=== PATIENT | female | born 2000 | race African-American/Black ===

== ENCOUNTER 2018-11-05 10:33 | Emergency (ER) | payer BC ==
[2018-11-05] MEDS ORDERED: Ondansetron INJ* 2 MG/ML VIAL IV ONE (11:09)
[2018-11-05] MEDS ORDERED: NS 0.9% 1000 ML** 1,000 ML IV ONE (11:09)
[2018-11-05] MEDS ORDERED: Ketorolac INJ* 30 MG/ML 1 ML VIAL IV PUSH ONE (11:09)
--- NOTE | 2018-11-05 11:10 | ED ---
Complex/Multi-Sys Presentation - HPI Summary HPI Summary: This patient is a 17 year old F presenting to [facility] with a chief complaint of abdominal pain since night of 11/04/18. Pt report she had a sore throat, abdominal pain, diarrhea (watery, no blood). Then this morning pt reports trouble breathing, her abdominal pain was aggravated by breathing. And she reports diarrhea, nausea, dry heaving, and more abdominal pain. 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 Per triage, the patient rates the pain 7/10 in severity. Patient reports chills (night of 11/04/18), no loss of appetite. Patient denies urinary symptoms. Her last known menstrual period was 4 months ago, when her control was placed. Pt has PMHx of chronic sinusitis, and asthma. Pt has had two sinus surgeries. Pt reports no smoking, no drug use, occasional drinking. Medications reviewed. Allergies noted - History Of Current Complaint Chief Complaint: EDShortnessOfBreath Time Seen by Provider: 11/05/18 10:57 Hx Obtained From: Patient Onset/Duration: Lasting Hours, Still Present Timing: Constant, Hours Severity Currently: Severe Severity Initially: Moderate Location: Pain At: - Abdomen Aggravating Factor(s): Breathing Alleviating Factor(s): Nothing Associated Signs And Symptoms: Positive: SOB, Nausea, Diarrhea, Abdominal Pain. Negative: Dysuria Related History: Similar Episode/Diagnosed As: - large appendix - Allergies/Home Medications Allergies/Adverse Reactions: Allergies Allergy/AdvReac Type Severity Reaction Status Date / Time shellfish derived Allergy Hives Verified 11/05/18 10:50 strawberry Allergy Hives Verified 11/05/18 10:50 PMH/Surg Hx/FS Hx/Imm Hx Respiratory History: Reports: Hx Asthma Sensory History: Denies: Hx Legally Blind Opthamlomology History: Denies: Hx Legally Blind EENT History: Reports: Other - chronic sinusitis Denies: Hx Deafness - Surgical History Surgery Procedure, Year, and Place: 2x Sinus Surgeries. Infectious Disease History: No Infectious Disease History: Denies: Traveled Outside the [place] in Last 30 Days - Family History Known Family History: Positive: Hypertension Negative: Diabetes - Social History Occupation: Student Lives: Dormitory/Roommates Alcohol Use: Occasionally Substance Use Type: Reports: None Smoking Status (MU): Never Smoked Tobacco Review of Systems Positive: Chills Positive: Sore Throat Positive: Shortness Of Breath Positive: Abdominal Pain, Diarrhea, Nausea Negative: dysuria, hematuria All Other Systems Reviewed And Are Negative: Yes Physical Exam - Summary Physical Exam Summary: Constitutional: Well-developed, Well-nourished, Alert. (-) Distressed Skin: Warm, Dry HENT: Normocephalic; Atraumatic Eyes: Conjunctiva normal Neck: Musculoskeletal ROM normal neck. (-) JVD, (-) Stridor, (-) Tracheal deviation Cardio: Rhythm regular, rate normal, Heart sounds normal; Intact distal pulses; The pedal pulses are 2+ and symmetric. Radial pulses are 2+ and symmetric. (-) Murmur Pulmonary/Chest wall: Effort normal. (-) Respiratory distress, (-) Wheezes, (-) Rales Abd: Soft, (-) tenderness, (-) Distension, (-) Guarding, (-) Rebound, RUQ and RLQ tenderness worse in lower quadrant. Minimal abdominal pain with percussion of heel Musculoskeletal: (-) Edema Lymph: (-) Cervical adenopathy Neuro: Alert, Oriented x3 Psych: Mood and affect Normal Triage Information Reviewed: Yes Vital Signs On Initial Exam: Initial Vitals Temp Pulse Resp BP Pulse Ox 99.2 F 117 20 115/67 100 11/05/18 10:40 11/05/18 10:40 11/05/18 10:40 11/05/18 10:40 11/05/18 10:40 Vital Signs Reviewed: Yes Diagnostics - Vital Signs Vital Signs Temp Pulse Resp BP Pulse Ox 11/05/18 10:40 99.2 F 117 20 115/67 100 - Laboratory Result Diagrams: 11/05/18 11:28 11/05/18 11:28 Lab Statement: Any lab studies that have been ordered have been reviewed, and results considered in the medical decision making process. - CT Abdomen/Pelvis CT CT Interpretation Completed By: Radiologist Summary of CT Findings: Abdomen/Pelvis CT reveals, per radiologist, IMPRESSION: NO ACUTE CT PATHOLOGY OF THE VISUALIZED ABDOMEN OR PELVIS. ED physician has reviewed this radiology report. Re-Evaluation - Re-Evaluation First Eval Comment: White count comes back at 13.7, will order CT scan. Second Eval Re-Evaluation Time: 16:23 Comment: Discussed plan of care with pt. Complex Multi-Symp Course/Dx Course Of Treatment: Patient is here with right lower quadrant pain, nausea, diarrhea, chills. Patient has had multiple presentations that are similar in the past with negative workup outside of a "large appendix". Given patient's multiple CT scans in the past, a stepwise approach was taken today. Patient had blood performed which looks ecchymosis of 14. Due to her leukocytosis, a CT scan was performed which showed no evidence of appendicitis. - Diagnoses Provider Diagnoses: Abdominal pain with vomiting, Chills Discharge ED - Sign-Out/Discharge Documenting (check all that apply): Patient Departure - Discharge Patient Received Moderate/Deep Sedation with Procedure: No - Discharge Plan Condition: Stable Disposition: HOME Prescriptions: Dicyclomine CAP* [Bentyl CAP*] 10 mg PO TID PRN #20 cap PRN Reason: Pain - Moderate Ondansetron ODT TAB* [Zofran 4 MG Odt TAB*] 4 mg PO Q8H PRN #12 tab.odt PRN Reason: Vomiting Patient Education Materials: Acute Nausea and Vomiting (ED), Acute Abdominal Pain (ED) Referrals: [facility], [facility] - Bob SANTANA [Primary Care Provider] - As Soon As Possible Additional Instructions: Take medication as prescribed. Take pedialyte to stay hydrated. Follow up with primary care provider as soon as possible. PLEASE RETURN TO EMERGENCY DEPARTMENT FOR ANY NEW OR WORSENING SYMPTOMS - Billing Disposition and Condition Condition: STABLE Disposition: Home - Attestation Statements Document Initiated by Isidro: Yes Documenting Scribe: Melissa Colon Provider For Whom Isidro is Documenting (Include Credential): Bryson Cardenas MD Scribe Attestation: Melissa Ho, scribed for Bryson Cardenas MD on 11/05/18 at 2148. Scribe Documentation Reviewed: Yes Provider Attestation: The documentation as recorded by the Melissa johnson accurately reflects the service I personally performed and the decisions made by me, Bryson Cardenas MD Status of Scribe Document: Viewed
[2018-11-05 11:48] LABS: ABS Lymphocytes 0.6 10^3/ul (1.0-4.8); ABS Monocytes 0.8 10^3/ul (0-0.8); ABS Neutrophils 12.3 10^3/ul (1.5-7.7); Eosinophil % 0.3 %; Hematocrit 38 % (35-47); Hemoglobin 12.5 g/dL (12.0-16.0); Lymphocyte % 4.1 %; Mean Corpuscular HGB Conc 33 g/dL (31-36); Mean Corpuscular Hemoglobin 26 pg (27-31); Mean Corpuscular Volume 78 fL (80-97); Mean Platelet Volume 8.2 fL (7.4-10.4); Platelet Count 216 10^3/uL (150-450); Red Blood Count 4.88 10^6 /uL (3.70-4.87); Red Cell Distribution Width 14 % (10-15); White Blood Count 13.7 10^3/uL (3.5-10.8)
[2018-11-05 12:20] LABS: Anion Gap 7 mmol/L (2-11); CO2 Carbon Dioxide 22 mmol/L (22-32); Calcium 9.2 mg/dL (8.6-10.3); Chloride 106 mmol/L (101-111); Potassium 3.8 mmol/L (3.5-5.0); Sodium 135 mmol/L (135-145)
[2018-11-05 12:23] LABS: ALT 16 U/L (7-52); AST 17 U/L (13-39); Albumin/Globulin Ratio 1.3 (1-3); Alkaline Phosphatase 89 U/L (34-104); BUN/Creatinine Ratio 8.9 (8-20); Blood Urea Nitrogen 7 mg/dL (6-24); C Reactive Protein 30.59 mg/L (<8.01); EGFR African American 113.4 (>60); EGFR Non-African American 93.8 (>60); Globulin 3.2 g/dL (2-4); Glucose 102 mg/dL (70-100); Total Protein 7.2 g/dL (6.4-8.9)
[2018-11-05 12:27] LABS: HCG Pregnancy < 0.60 mIU/mL
[2018-11-05] MEDS ORDERED: Iohexol 300* (CONTRAST) 10 ML SDV IV ONE (13:38)
[2018-11-05 14:06] LABS: Erythrocyte Sed Rate 8 mm/Hr (0-19)
[2018-11-05] MEDS ORDERED: Dicyclomine CAP* 10 MG PO ONE (16:04)
[2018-11-05 16:27] VITALS: BP 118/66
== END 2018-11-05 16:33 | disposition home or self-care (01) ==
LOC: ED 10:33
DX: R10.31 Right lower quadrant pain (principal); R10.11 Right upper quadrant pain; R11.2 Nausea with vomiting, unspecified; R68.83 Chills (without fever); R06.02 Shortness of breath; R19.7 Diarrhea, unspecified; R00.0 Tachycardia, unspecified; Z91.013 Allergy to seafood; Z91.018 Allergy to other foods
CPT/HCPCS: 36415; 74177; 80053; 83690; 84702; 85025; 85652; 86140; 93005; 96361; 96374; 96375; 99283; A9270-GY; J1885; J2405; Q9967